=== PATIENT | male | born 1980 | race Two or more races ===

== ENCOUNTER 2024-10-02 09:29 | Inpatient (IN) | payer SELFPAY ==
[2024-10-02] VITALS (8 sets, daily range): BP systolic 150–168; BP diastolic 86–116; PULSE 76–115; TEMP 36.4–36.8; O2SAT 96–100; BMI 22.1; BMI 18.9
--- NOTE | 2024-10-02 09:55 | CT_ITS ---
The [address] [address] Patient Name: RENAE SANTANA MRN: [id number] date: 1980 Sex: M Assigned Patient Location: ER Current Patient Location: MS Accession/Order Number: [id number] Exam Date: 10/02/2024 10:06 Report Date: 10/02/2024 12:50 At the request of: ZACARIAS BANSAL Procedure: CT foot RT wo con EXAM: CT foot RT wo con HISTORY: frostbite, necrosis right foot COMPARISON: None. FINDINGS: No acute fracture or dislocation. Joint spaces are well-maintained. No cortical erosive changes. In particular, no acro-osteolysis to the distal phalanges. There is extensive soft tissue swelling to the right foot, particularly involving the digits and the forefoot. No focal fluid collection/abscess. No foci of air within the subcutaneous tissues. CT/CT foot RT wo con IMPRESSION: No acute fracture or dislocation. No cortical erosive changes. No evidence for acro-osteolysis to the distal phalanges. Extensive soft tissue swelling right foot, particularly involving the digits and forefoot. This is consistent with the provided history of a thermal injury. No abscess. No foci of air in the subcutaneous tissues. Electronically authenticated by: JOSE DYER Date: 10/02/2024 12:50
[2024-10-02 10:10] LABS: Basophils Percent Auto 0.2 % (0.2-2.0); Eosinophils Absolute Auto 0.4 10^3/uL (0.0-0.7); Eosinophils Percent Auto 3.2 % (0.9-7.0); Hematocrit 38.1 % (42.0-54.0); Hemoglobin 13.3 g/dL (14.0-18.0); Immature Granulocytes Abs Auto 0.07 10^3/uL (0.00-0.03); Immature Granulocytes Pct Auto 0.6 % (0.0-0.5); Lymphocytes Percent Auto 16.7 % (20.5-60.0); Mean Corpuscular HGB Conc 34.9 g/dL (29.9-35.2); Mean Corpuscular Hemoglobin 31.9 pg (25.9-34.0); Mean Corpuscular Volume 91.4 fL (80.0-94.0); Mean Platelet Volume 9.4 fL (9.5-13.5); Monocytes Percent Auto 8.3 % (1.7-12.0); Neutrophils Absolute Auto 8.5 10^3/uL (1.4-6.5); Platelet Count 431 10^3/uL (150-450); Red Blood Count 4.17 10^6/uL (4.70-6.10); Red Cell Distribution Width 12.9 % (11.0-15.0)
[2024-10-02] MEDS: PIPERACILLIN SODIUM/TAZOBACTAM 4.5 GM in 0.9 % SODIUM CHLORIDE 50 ML IV (10:13)
[2024-10-02 10:27] LABS: Alanine Aminotransferase 45 U/L (16-63); Albumin Globulin Ratio 0.6; Albumin Level 2.9 g/dL (3.4-5.0); Alkaline Phosphatase 83 U/L (46-116); Anion Gap 12.1; Aspartate Amino Transferase 20 U/L (15-37); BUN Creatinine Ratio 14.8; Bilirubin Total 0.2 mg/dL (0.2-1.0); Carbon Dioxide 29.5 mmol/L (21.0-32.0); Chloride 101 mmol/L (98-107); Estimated GFR (African America >60 (>=60 mL/min/1.73m^2); Estimated GFR (Non-African Ame >60 (>=60 mL/min/1.73m^2); Globulin 4.5 g/dL; Glucose 157 mg/dL (74-106); Potassium 3.6 mmol/L (3.5-5.1); Sodium 139 mmol/L (136-145); Total Protein 7.4 g/dL (6.4-8.2)
--- NOTE | 2024-10-02 10:51 | ED.GENADUL1 ---
HPI HPI - General Adult General Chief complaint: Extremity Problem, Nontraumatic Stated complaint: LOWER EXTREMITY PAIN Time Seen by Provider: 10/02/24 09:37 Source: patient Mode of arrival: walk-in History of Present Illness HPI narrative: The patient notes with frostbite and obvious infection of the right foot. The patient told me that he is homeless and living in his car for the last 3 months. He is from the [facility] but recently has been residing in [place]. We have had severe cold weather with temperatures dropping below freezing and even below 0 over the last week or so. He said that he does not have the money to run his car all night and keep it heated and therefore he has been trying to stay as warm as possible. He started develop changes in the foot at least a week ago. He has not sought care for this to date. It is not clear why he chose to leave [place], which has a larger hospital in that location, in order to drive to [place]. But he now presents with concern for obvious infection of the foot and possible and likely loss of toes in that right foot as well. He denies any prior medical history such as diabetes, high cholesterol, hypertension, coronary artery disease. He denies taking any medications on a prescribed basis. He denies any symptoms such as fever, chills, vomiting. He has lost some sensation in that foot. Related Data Allergies Allergy/AdvReac Type Severity Reaction Status Date / Time No Known Drug Allergies Allergy Verified 10/02/24 09:35 Opioid HPI Opioid Management Most Recent Opioid Data: Last Pain Scale 0 10/02/24 12:05 10/02/24 Last Pain Assessment 10/02/24 12:05 Last ORT Total Score 1 10/02/24 10:56 10/02/24 Last ORT Risk Category Low Risk 10/02/24 10:56 10/02/24 [facility] Medical History (Updated 10/02/24 @ 12:20 by Shaikh Mirlande MD) Gangrene of toe of right foot ?I96 - Gangrene, not elsewhere classified (ICD-10) HTN (hypertension) ?I10 - Essential (primary) hypertension (ICD-10) Social History (Updated 10/02/24 @ 12:10 by Mandy Khalil) Within the past year, how often did you have a drink containing alcohol: 2-3 times a week Within the past year, how many standard drinks containing alcohol did you have on a typical day: 10 or more Within the past year, how often did you have six or more drinks on one occasion: never Total score: 8 Score interpretation: A score of 4 or more indicates drinking is likely to affect patient's safety. 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 [employer] Known occupational exposures/hazards: No Highest level of school completed/degree received: high school graduate Do you want help with school or training: No Are you now , , , , never or living with a partner: In a typical week, how many times do you talk on the telephone with family, friends, or neighbors: never How often do you get together with friends or relatives: never How often do you attend taoist or synagogue services: never Do you belong to any clubs or organizations such as taoist groups unions, fraternal or athletic groups, or school groups: no Total score: 0 Score interpretation: A score of less than or equal to 1 indicates the most socially isolated. Little interest or pleasure in doing things: not at all Feeling down, depressed, or hopeless: not at all Feel stressed/tense/nervous/anxious/difficulty sleeping: not at all Due to disability, difficulty making decisions: No Do you think of yourself as: straight/heterosexual Gender Identity: male Exam Narrative Exam Narrative: Nurses notes and vital signs reviewed and patient is not hypoxic. afebrile General: Well-appearing and in no apparent distress. Skin: Warm, dry, no pallor noted. See the musculoskeletal section below for details regarding the patient's right foot Head: Normocephalic, atraumatic. Neck: Supple, non-tender. Eye: Pupils are equal, round and EOMI. No scleral icterus. Ears, Nose, Mouth, and Throat: Oral mucosa is moist Cardiovascular: Regular Rate and Rhythm without murmur, gallop or rub. Respiratory: No accessory muscle use or respiratory distress. Lungs are clear to auscultation, no wheezing, rales or rhonchi Musculoskeletal: Right foot = he has necrosis of all 5 toes of the right foot, they are purple and already experiencing skin sloughing in several areas. He additionally has skin sloughing on the distal portion of the plantar aspect of the foot. There is some drainage of serous fluid in the foot is very foul-smelling. I do not see any proximal streaking but due to the color of his skin is difficult to assess. He has almost no range of motion of the toes of the right foot and absolutely no sensation. The skin sloughing is starting to extend into the distal portion of the right foot on the plantar and dorsal surface. All remaining extremities and the proximal portion of the right lower extremity, including ankle, lower leg, knee and thigh are with normal ROM. No calf or popliteal tenderness, no lower leg edema/swelling Neurological: A&O x4. No cranial nerve dysfunction observed. No truncal ataxia. Moves all extremities. Sensation intact. Psychiatric: Cooperative and interactive. Normal mood and affect. Constitutional Vital Signs, click to edit/add: Last Vital Signs Temp 97.8 F 10/02/24 12:19 Pulse 76 10/02/24 12:19 Resp 16 10/02/24 12:19 BP 160/88 H 10/02/24 12:19 Pulse Ox 98 10/02/24 12:19 O2 Del Method Room Air 10/02/24 12:19 Course Vital Signs Vital signs: Vital Signs Temperature 98.3 F 10/02/24 09:32 Pulse Rate 115 H 10/02/24 09:32 Respiratory Rate 18 10/02/24 09:32 Blood Pressure 156/116 H 10/02/24 09:32 Pulse Oximetry 100 10/02/24 09:32 Oxygen Delivery Method Room Air 10/02/24 09:32 Temperature 97.8 F 10/02/24 12:19 Pulse Rate 76 10/02/24 12:19 Respiratory Rate 16 10/02/24 12:19 Blood Pressure 160/88 H 10/02/24 12:19 Pulse Oximetry 98 10/02/24 12:19 Oxygen Delivery Method Room Air 10/02/24 12:19 Medical Decision Making MDM Narrative Medical decision making narrative: Patient has obvious necrosis of the toes of the right foot and will need surgery to take care of this. Peripheral IV was established and blood drawn and sent for testing. I also ordered a wound swab to be obtained. CT scan of the right foot was also ordered as it will give much more information than a simple set of plain films. He was ordered to receive IV Zosyn. I placed a call to the on-call looseleaf binder coverer, Dr. Layton, and we discussed this patient's case. He said he would be willing to take this patient to the OR on Friday if Dr. Renteria, the email marketing specialist on-call, would be willing to admit this patient. I spoke with Dr. Nogueira and after discussing the patient's case, he agreed to admit the patient to his service. The patient will go to medical surgical floor for continued IV antibiotic therapy, further assessment of his general condition with plans for surgical services - hopefully on October 04. Lab Data Lab results reviewed: Yes I reviewed the patient's lab results Labs: Lab Results 10/02/24 Range/Units 09:53 WBC 12.0 H (4.0-11.0) 10^3/uL RBC 4.17 L (4.70-6.10) 10^6/uL Hgb 13.3 L (14.0-18.0) g/dL Hct 38.1 L (42.0-54.0) % MCV 91.4 (80.0-94.0) fL MCH 31.9 (25.9-34.0) pg MCHC 34.9 (29.9-35.2) g/dL RDW 12.9 (11.0-15.0) % Plt Count 431 (150-450) 10^3/uL MPV 9.4 L (9.5-13.5) fL Neut % (Auto) 71.0 (43.0-75.0) % Lymph % (Auto) 16.7 L (20.5-60.0) % [place] % (Auto) 8.3 (1.7-12.0) % Eos % (Auto) 3.2 (0.9-7.0) % Baso % (Auto) 0.2 (0.2-2.0) % Neut # (Auto) 8.5 H (1.4-6.5) 10^3/uL Lymph # (Auto) 2.0 (1.2-3.8) 10^3/uL [place] # (Auto) 1.0 H (0.3-0.8) 10^3/uL Eos # (Auto) 0.4 (0.0-0.7) 10^3/uL Baso # (Auto) 0.0 (0.0-0.1) 10^3/uL Abs Immat Gran (auto) 0.07 H (0.00-0.03) 10^3/uL Imm/Tot Granulo (auto) 0.6 H (0.0-0.5) % ESR 56 H (<=15) mm/hr Sodium 139 (136-145) mmol/L Potassium 3.6 (3.5-5.1) mmol/L Chloride 101 (98-107) mmol/L Carbon Dioxide 29.5 (21.0-32.0) mmol/L Anion Gap 12.1 BUN 16.0 (7.0-18.0) mg/dL Creatinine 1.08 (0.70-1.30) mg/dL Est GFR ( Amer) >60 (>=60 mL/min/1.73m^2) Est GFR (Non-Af Amer) >60 (>=60 mL/min/1.73m^2) BUN/Creatinine Ratio 14.8 Glucose 157 H (74-106) mg/dL Calcium 9.0 (8.5-10.1) mg/dL Total Bilirubin 0.2 (0.2-1.0) mg/dL AST 20 (15-37) U/L ALT 45 (16-63) U/L Alkaline Phosphatase 83 (46-116) U/L C-Reactive Protein 14.25 H (<=0.50) mg/dL Total Protein 7.4 (6.4-8.2) g/dL Albumin 2.9 L (3.4-5.0) g/dL Globulin 4.5 g/dL Albumin/Globulin Ratio 0.[address] foot: Radiologist's impression: ITS Impressions Foot CT 10/02/24 09:55 IMPRESSION: No acute fracture or dislocation. No cortical erosive changes. No evidence for acro-osteolysis to the distal phalanges. Extensive soft tissue swelling right foot, particularly involving the digits and forefoot. This is consistent with the provided history of a thermal injury. No abscess. No foci of air in the subcutaneous tissues. Electronically authenticated by: JOSE DYER Date: 10/02/2024 12:50 Discharge Plan Discharge Chief Complaint: Extremity Problem, Nontraumatic Clinical Impression: Frostbite with tissue necrosis of right toe(s), initial encounter Patient Disposition: Admitted As Inpatient Time of Disposition Decision: 10:00 Discharge Date/Time: 10/02/24 11:05
--- NOTE | 2024-10-02 12:13 | PM.HP ---
HPI H&P: HPI History of Present Illness Chief complaint: LOWER EXTREMITY PAIN Narrative: 44 y o male, currently homeless and living out of his car came to ED for right foot discoloration, pain and foul smelling discharge. He told me that his car's heat broke down and September 20 is when he first noticed that his toes in right foot had turned purple. He hoped that they will improve but progressively got worse and now he appears to have gangrenous changes involving all his toes in right foot. He has minimal pain. Case d/w Podiatry by ED who will take patient to OR on Friday. Patient has no known medical problems except for HTN. Smokes daily and drinks alcohol but no concern for alcohol dependence or abuse. Denies hx of Drug use. Opioid HPI Opioid Management Most Recent Pain and Opioid Data: Last Pain Scale 0 10/02/24 12:05 10/02/24 Last Pain Assessment 10/02/24 12:05 Last ORT Total Score 1 10/02/24 10:56 10/02/24 Last ORT Risk Category Low Risk 10/02/24 10:56 10/02/24 Review of Systems ROS Status of ROS 10 or more systems reviewed and unremarkable except as noted in history and below [facility] Medical History (Updated 10/02/24 @ 12:20 by Shaikh Mirlande MD) Gangrene of toe of right foot ?I96 - Gangrene, not elsewhere classified (ICD-10) HTN (hypertension) ?I10 - Essential (primary) hypertension (ICD-10) Social History (Updated 10/02/24 @ 12:10 by Mandy Khalil) Within the past year, how often did you have a drink containing alcohol: 2-3 times a week Within the past year, how many standard drinks containing alcohol did you have on a typical day: 10 or more Within the past year, how often did you have six or more drinks on one occasion: never Total score: 8 Score interpretation: A score of 4 or more indicates drinking is likely to affect patient's safety. 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 [employer] Known occupational exposures/hazards: No Highest level of school completed/degree received: high school graduate Do you want help with school or training: No Are you now , , , , never or living with a partner: In a typical week, how many times do you talk on the telephone with family, friends, or neighbors: never How often do you get together with friends or relatives: never How often do you attend pentecostal or scientologist services: never Do you belong to any clubs or organizations such as pentecostal groups unions, fraternal or athletic groups, or school groups: no Total score: 0 Score interpretation: A score of less than or equal to 1 indicates the most socially isolated. Little interest or pleasure in doing things: not at all Feeling down, depressed, or hopeless: not at all Feel stressed/tense/nervous/anxious/difficulty sleeping: not at all Due to disability, difficulty making decisions: No Do you think of yourself as: straight/heterosexual Gender Identity: male Meds Home Medications and Allergies Allergies Allergy/AdvReac Type Severity Reaction Status Date / Time No Known Drug Allergies Allergy Verified 10/02/24 09:35 Exam Constitutional Vital Signs, click to edit/add: Last Vital Signs Temp 97.5 F L 10/02/24 10:56 Pulse 78 10/02/24 10:56 Resp 16 10/02/24 10:56 BP 165/93 H 10/02/24 10:56 Pulse Ox 98 10/02/24 10:56 O2 Del Method Room Air 10/02/24 10:56 Documenting provider has reviewed patient's vital signs: yes Common normals: no apparent distress and oriented x3 General appearance: cooperative HENND Common normals: normocephalic and head/scalp atraumatic Head and scalp: normocephalic and atraumatic Eye Common normals: conjunctivae normal and no scleral icterus Conjunctiva: conjunctiva(e) normal Respiratory Common normals: normal respiratory effort and clear to auscultation bilaterally Effort & inspection: able to speak in complete sentences Auscultation: clear to auscultation bilaterally Cardio Common normals: regular rate, S1 normal heart sound and S2 normal heart sound Rate: regular rate Heart sounds: S1 normal and S2 normal GI Common normals: Normal to inspection, nondistended, normoactive bowel sounds present, soft to palpation, non-tender and no hepatosplenomegaly Palpation: soft and no hepatosplenomegaly Extremity Other: Gangrene/necrosis of all toes of right foot. Plantar aspect of foot in the front half is macerated and stage 2 ulcer. Foul smell from foot wound. Neuro Common normals: oriented x3, moves all extremities and no focal motor deficits Psych Common normals: mental status grossly normal, denies hallucinations, denies homicidal ideation and denies suicidal ideation Results Labs Labs: Short CBC 10/02/24 Range/Units 09:53 WBC 12.0 H (4.0-11.0) 10^3/uL Hgb 13.3 L (14.0-18.0) g/dL Hct 38.1 L (42.0-54.0) % Plt Count 431 (150-450) 10^3/uL BMP 10/02/24 09:53 Sodium 139 Potassium 3.6 Chloride 101 Carbon Dioxide 29.5 BUN 16.0 Creatinine 1.08 Glucose 157 H Calcium 9.0 Liver Function 10/02/24 Range/Units 09:53 Total Bilirubin 0.2 (0.2-1.0) mg/dL AST 20 (15-37) U/L ALT 45 (16-63) U/L Alkaline Phosphatase 83 (46-116) U/L Albumin 2.9 L (3.4-5.0) g/dL Assessment and Plan Assessment and Plan (1) Gangrene of toe of right foot: (2) Frostbite with tissue necrosis of foot: Qualifiers: Encounter type: subsequent encounter Laterality: right Qualified Code(s): T34.821D - Frostbite with tissue necrosis of right foot, subsequent encounter (3) HTN (hypertension): Qualifiers: Hypertension type: primary hypertension Qualified Code(s): I10 - Essential (primary) hypertension Plan CT scan pending. Order ESR, CRP. Screen for T2 DM. Wound consulted for Right foot wound with gangrene and necrosis. Consulted Podiatry. Started on empirical IV abx - Vancomycin/zosyn. child protective services specialist consulted for homelessness.
[2024-10-02 12:26] LABS: C Reactive Protein 14.25 mg/dL (<=0.50)
[2024-10-02 12:27] LABS: Erythrocyte Sedimentation Rate 56 mm/hr (<=15)
[2024-10-02] MEDS: VANCOMYCIN HCL 1,000 MG in 0.9 % SODIUM CHLORIDE 250 ML 250 MG IV (13:49)
[2024-10-02 14:43] LABS: Amphetamine Screen Urine NEGATIVE (NEGATIVE); Barbiturates Screen Urine NEGATIVE (NEGATIVE); Benzodiazepines Screen Urine NEGATIVE (NEGATIVE); Buprenorphine Screen Urine NEGATIVE (NEGATIVE); Cannabinoid Screen Urine NEGATIVE (NEGATIVE); Cocaine Screen Urine NEGATIVE (NEGATIVE); Methadone Screen Urine NEGATIVE (NEGATIVE); Methamphetamines Screen Urine NEGATIVE (NEGATIVE); Opiate Screen Urine NEGATIVE (NEGATIVE); Oxycodone Screen Urine NEGATIVE (NEGATIVE); Phencyclidine Screen Urine NEGATIVE (NEGATIVE); Tricyclic Antidepressant Urine NEGATIVE (NEGATIVE)
[2024-10-02] MEDS: ENOXAPARIN SODIUM 40 MG/0.4 ML SYRINGE SUBQ (17:58)
[2024-10-02] MEDS: PIPERACILLIN SODIUM/TAZOBACTAM 3.375 GM in 0.9 % SODIUM CHLORIDE 50 ML IV (20:36)
[2024-10-02] MEDS: OXYCODONE HCL 5 MG TABLET PO (23:15)
[2024-10-03] MEDS: VANCOMYCIN HCL 1,000 MG in 0.9 % SODIUM CHLORIDE 250 ML 250 MG IV ×2 (01:01→15:39)
[2024-10-03] MEDS: PIPERACILLIN SODIUM/TAZOBACTAM 3.375 GM in 0.9 % SODIUM CHLORIDE 50 ML IV ×3 (04:30→21:23)
[2024-10-03 04:33] VITALS: BP 168/96; PULSE 79; TEMP 36.8; O2SAT 95
[2024-10-03 06:21] LABS: Basophils Absolute Auto 0.1 10^3/uL (0.0-0.1); Basophils Percent Auto 0.4 % (0.2-2.0); Eosinophils Absolute Auto 0.4 10^3/uL (0.0-0.7); Eosinophils Percent Auto 3.3 % (0.9-7.0); Hematocrit 36.5 % (42.0-54.0); Hemoglobin 12.3 g/dL (14.0-18.0); Immature Granulocytes Abs Auto 0.05 10^3/uL (0.00-0.03); Immature Granulocytes Pct Auto 0.4 % (0.0-0.5); Lymphocytes Absolute Auto 1.8 10^3/uL (1.2-3.8); Lymphocytes Percent Auto 14.5 % (20.5-60.0); Mean Corpuscular HGB Conc 33.7 g/dL (29.9-35.2); Mean Corpuscular Hemoglobin 30.7 pg (25.9-34.0); Mean Platelet Volume 9.7 fL (9.5-13.5); Monocytes Absolute Auto 1.1 10^3/uL (0.3-0.8); Neutrophils Absolute Auto 9.2 10^3/uL (1.4-6.5); Neutrophils Percent Auto 72.4 % (43.0-75.0); Platelet Count 398 10^3/uL (150-450); Red Blood Count 4.01 10^6/uL (4.70-6.10); Red Cell Distribution Width 12.7 % (11.0-15.0); White Blood Count 12.7 10^3/uL (4.0-11.0)
[2024-10-03 06:27] LABS: Estimated Average Glucose 103 mg/dL; Glycohemoglobin A1C 5.2 % (4.5-6.2)
[2024-10-03 06:45] LABS: Alanine Aminotransferase 32 U/L (16-63); Albumin Globulin Ratio 0.6; Albumin Level 2.4 g/dL (3.4-5.0); Alkaline Phosphatase 63 U/L (46-116); Anion Gap 10.2; Aspartate Amino Transferase 16 U/L (15-37); BUN Creatinine Ratio 12.2; Bilirubin Total 0.2 mg/dL (0.2-1.0); Calcium 8.8 mg/dL (8.5-10.1); Carbon Dioxide 26.7 mmol/L (21.0-32.0); Chloride 105 mmol/L (98-107); Estimated GFR (African America >60 (>=60 mL/min/1.73m^2); Estimated GFR (Non-African Ame >60 (>=60 mL/min/1.73m^2); Glucose 95 mg/dL (74-106); Potassium 3.9 mmol/L (3.5-5.1); Sodium 138 mmol/L (136-145); Total Protein 6.4 g/dL (6.4-8.2)
[2024-10-03 07:34] VITALS: BP 169/91; PULSE 83; TEMP 36.7; O2SAT 96
[2024-10-03] MEDS: AMLODIPINE BESYLATE 5 MG TABLET 10 MG PO (08:52)
[2024-10-03 11:08] VITALS: O2SAT 99
--- NOTE | 2024-10-03 11:25 | P.CN_ITS ---
Consult Note: [facility] Data of Consult Consult date: 10/03/24 Requesting Physician: Shaikh Mirlande MD Primary Care Provider: Non-Staff Physician, Consult Narrative Reason for consult: Right foot infection/gangrene Narrative: Patient is a pleasant 44-year-old male who is currently homeless who presented to the emergency department yesterday due to discoloration, wound to his right forefoot including toes. Patient noticed purplish discoloration within 2 weeks ago and progressively the discoloration which was initially limited to the tips of his toes worsened and then became black. Patient relates that during the severely cold temperatures that he and his car was not working properly which led to this current issue. He has never had any significant issues with his feet in the past and denies symptoms of claudication and rest pain. In the emergency department patient had leukocytosis and significant elevation in inflammatory markers. He was admitted for further evaluation and treatment. Patient relates that he feels systemically well but does have some discomfort to his forefoot when attempting to bear weight. He denies nausea, fever, chills, chest pain, shortness of breath, calf pain. cc:: CC: Shaikh Mirlande MD Review of Systems ROS Status of ROS 10 or more systems reviewed and unremark able except as noted in history and below [facility] Medical History (Updated 10/02/24 @ 12:20 by Shaikh Mirlande MD) Gangrene of toe of right foot ?I96 - Gangrene, not elsewhere classified (ICD-10) HTN (hypertension) ?I10 - Essential (primary) hypertension (ICD-10) Social History (Updated 10/02/24 @ 12:10 by Mandy Khalil) Within the past year, how often did you have a drink containing alcohol: 2-3 times a week Within the past year, how many standard drinks containing alcohol did you have on a typical day: 10 or more Within the past year, how often did you have six or more drinks on one occasion: never Total score: 8 Score interpretation: A score of 4 or more indicates drinking is likely to affect patient's safety. 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 [employer] Known occupational exposures/hazards: No Highest level of school completed/degree received: high school graduate Do you want help with school or training: No Are you now , , , , never or living with a partner: In a typical week, how many times do you talk on the telephone with family, friends, or neighbors: never How often do you get together with friends or relatives: never How often do you attend hinduism or holiness services: never Do you belong to any clubs or organizations such as hinduism groups unions, [employer] or athletic groups, or school groups: no Total score: 0 Score interpretation: A score of less than or equal to 1 indicates the most socially isolated. Little interest or pleasure in doing things: not at all Feeling down, depressed, or hopeless: not at all Feel stressed/tense/nervous/anxious/difficulty sleeping: not at all Due to disability, difficulty making decisions: No Do you think of yourself as: straight/heterosexual Gender Identity: male Meds Home Medications and Allergies Allergies Allergy/AdvReac Type Severity Reaction Status Date / Time No Known Drug Allergies Allergy Verified 10/02/24 09:35 Exam Narrative Exam Narrative: Skin: Right toes are black with a macerated wound noted on the plantar forefoot. Mild global swelling of the foot but no ascending erythema. Significant malodor. Skin is sloughing and macerated to the forefoot. No fluctuance or purulence noted Neuro: Light touch sensation is absent to the toes and altered to the midfoot. No pain out of proportion Vascular: Pedal pulses are palpable. Absent digital hair growth bilaterally Musculoskeletal: Strength and range of motion were deferred. Patient is able to fire major muscle groups in dorsiflexion, plantarflexion, eversion and inversion. No calf pain on squeeze Constitutional Vital Signs, click to edit/add: Last Vital Signs Temp 98.0 F 10/03/24 07:34 Pulse 83 10/03/24 07:34 Resp 16 10/03/24 07:34 BP 169/91 H 10/03/24 07:34 Pulse Ox 99 10/03/24 11:08 O2 Del Method Room Air 10/03/24 11:08 Results Labs Labs: Short CBC 10/03/24 Range/Units 05:35 WBC 12.7 H (4.0-11.0) 10^3/uL Hgb 12.3 L (14.0-18.0) g/dL Hct 36.5 L (42.0-54.0) % Plt Count 398 (150-450) 10^3/uL BMP 10/03/24 05:35 Sodium 138 Potassium 3.9 Chloride 105 Carbon Dioxide 26.7 BUN 11.0 Creatinine 0.90 Glucose 95 Calcium 8.8 Liver Function 10/03/24 Range/Units 05:35 Total Bilirubin 0.2 (0.2-1.0) mg/dL AST 16 (15-37) U/L ALT 32 (16-63) U/L Alkaline Phosphatase 63 (46-116) U/L Albumin 2.4 L (3.4-5.0) g/dL Assessment and Plan Assessment and Plan (1) Gangrene of toe of right foot: (2) Frostbite with tissue necrosis of foot: Qualifiers: Encounter type: subsequent encounter Laterality: right Qualified Code(s): T34.821D - Frostbite with tissue necrosis of right foot, subsequent encounter (3) HTN (hypertension): Qualifiers: Hypertension type: primary hypertension Qualified Code(s): I10 - Essential (primary) hypertension Plan Patient seen and evaluated. Patient is occasion provided and all questions answered to his satisfaction. Patient's findings are consistent with wet gangrene and he is hemodynamically stable. Therefore I recommended transmetatarsal amputation and after discussing all the patient's options he agrees to move forward with surgical intervention tomorrow He will be nonweightbearing for 1 to 3 weeks and likely will require 6 weeks or more off of work Continue broad-spectrum antibiotics N.p.o. after midnight Will follow
--- NOTE | 2024-10-03 11:33 | P.IMPN_ITS ---
Progress Note: A&P Assessment and Plan (1) Gangrene of toe of right foot: Assessment and Plan: Elevated ESR/CRP. No abscess noted on CT. Gangrene/tissue necrosis due to prolonged exposure to freezing temperature. NPO after MN for podiatry eval and possible TMA. On empirical abx. (2) Frostbite with tissue necrosis of foot: Assessment and Plan: Gangrene/tissue necrosis due to prolonged exposure to freezing temperature. NPO after MN for podiatry eval and possible TMA. Qualifiers: Encounter type: subsequent encounter Laterality: right Qualified Code(s): T34.821D - Frostbite with tissue necrosis of right foot, subsequent encounter (3) HTN (hypertension): Assessment and Plan: Started on amlodipine. Qualifiers: Hypertension type: primary hypertension Qualified Code(s): I10 - Essential (primary) hypertension Internal Medicine - PN: Subj Subjective Interval history: Seen and examined. No overnight events. Exam Constitutional Vital Signs, click to edit/add: Last Vital Signs Temp 98.0 F 10/03/24 07:34 Pulse 83 10/03/24 07:34 Resp 16 10/03/24 07:34 BP 169/91 H 10/03/24 07:34 Pulse Ox 99 10/03/24 11:08 O2 Del Method Room Air 10/03/24 11:08 Documenting provider has reviewed patient's vital signs: yes Common normals: no apparent distress and oriented x3 General appearance: cooperative Respiratory Common normals: normal respiratory effort and clear to auscultation bilaterally Effort & inspection: able to speak in complete sentences Auscultation: clear to auscultation bilaterally Cardio Common normals: regular rate, S1 normal heart sound and S2 normal heart sound Rate: regular rate Heart sounds: S1 normal and S2 normal Extremity Other: Gangrene/necrosis of all toes of right foot. Plantar aspect of foot in the front half is macerated and stage 2 ulcer. Foul smell from foot wound. Neuro Common normals: oriented x3, moves all extremities and no focal motor deficits Psych Common normals: mental status grossly normal, denies hallucinations, denies homicidal ideation and denies suicidal ideation Internal Medicine - PN: Obj Da Labs Labs: Laboratory Results - last 24 hr 10/02/24 10/02/24 10/03/24 09:53 13:35 05:35 WBC 12.7 H RBC 4.01 L Hgb 12.3 L Hct 36.5 L MCV 91.0 MCH 30.7 MCHC 33.7 RDW 12.7 Plt Count 398 MPV 9.7 Neut % (Auto) 72.4 Lymph % (Auto) 14.5 L [place] % (Auto) 9.0 Eos % (Auto) 3.3 Baso % (Auto) 0.4 Neut # (Auto) 9.2 H Lymph # (Auto) 1.8 [place] # (Auto) 1.1 H Eos # (Auto) 0.4 Baso # (Auto) 0.1 Abs Immat Gran (auto) 0.05 H Imm/Tot Granulo (auto) 0.4 ESR 56 H Sodium 138 Potassium 3.9 Chloride 105 Carbon Dioxide 26.7 Anion Gap 10.2 BUN 11.0 Creatinine 0.90 Est GFR ( Amer) >60 Est GFR (Non-Af Amer) >60 BUN/Creatinine Ratio 12.2 Glucose 95 Estimat Average Glucose 103 Hemoglobin A1c 5.2 Calcium 8.8 Total Bilirubin 0.2 AST 16 ALT 32 Alkaline Phosphatase 63 C-Reactive Protein 14.25 H Total Protein 6.4 Albumin 2.4 L Globulin 4.0 Albumin/Globulin Ratio 0.6 Urine Opiates Screen Negative Ur Buprenorphine Scrn Negative Ur Oxycodone Screen Negative Urine Methadone Screen Negative Ur Barbiturates Screen Negative U Tricyclic Antidepress Negative Ur Phencyclidine Scrn Negative Ur Amphetamines Screen Negative U Methamphetamines Scrn Negative U Benzodiazepines Scrn Negative Urine Cocaine Screen Negative U Cannabinoids Screen Negative
[2024-10-03] MEDS: ENOXAPARIN SODIUM 40 MG/0.4 ML SYRINGE SUBQ (16:56)
[2024-10-03 16:57] VITALS: BP 163/92; PULSE 86; TEMP 36.8; O2SAT 99
[2024-10-03] MEDS: ACETAMINOPHEN 325 MG TABLET 650 MG PO (17:45)
[2024-10-03 19:47] VITALS: BP 164/96; PULSE 74; TEMP 36.8; O2SAT 98
[2024-10-03 19:52] VITALS: O2SAT 100
[2024-10-04] VITALS (15 sets, daily range): BP systolic 119–150; BP diastolic 76–98; PULSE 62–85; TEMP 36.5–36.8; O2SAT 92–100
[2024-10-04] MEDS: VANCOMYCIN HCL 1,000 MG in 0.9 % SODIUM CHLORIDE 250 ML 250 MG IV ×2 (00:59→15:15)
[2024-10-04] MEDS: PIPERACILLIN SODIUM/TAZOBACTAM 3.375 GM in 0.9 % SODIUM CHLORIDE 50 ML IV ×3 (04:44→23:49)
[2024-10-04 05:14] LABS: Basophils Percent Auto 0.3 % (0.2-2.0); Eosinophils Absolute Auto 0.4 10^3/uL (0.0-0.7); Eosinophils Percent Auto 3.1 % (0.9-7.0); Hematocrit 36.3 % (42.0-54.0); Hemoglobin 12.5 g/dL (14.0-18.0); Immature Granulocytes Abs Auto 0.06 10^3/uL (0.00-0.03); Immature Granulocytes Pct Auto 0.5 % (0.0-0.5); Lymphocytes Absolute Auto 2.2 10^3/uL (1.2-3.8); Mean Corpuscular HGB Conc 34.4 g/dL (29.9-35.2); Mean Corpuscular Hemoglobin 31.3 pg (25.9-34.0); Mean Platelet Volume 9.5 fL (9.5-13.5); Monocytes Absolute Auto 1.1 10^3/uL (0.3-0.8); Monocytes Percent Auto 8.2 % (1.7-12.0); Neutrophils Absolute Auto 9.1 10^3/uL (1.4-6.5); Neutrophils Percent Auto 70.9 % (43.0-75.0); Platelet Count 418 10^3/uL (150-450); Red Blood Count 3.99 10^6/uL (4.70-6.10); Red Cell Distribution Width 12.4 % (11.0-15.0); White Blood Count 12.9 10^3/uL (4.0-11.0)
[2024-10-04 05:32] LABS: Alanine Aminotransferase 35 U/L (16-63); Albumin Globulin Ratio 0.6; Albumin Level 2.7 g/dL (3.4-5.0); Alkaline Phosphatase 71 U/L (46-116); Anion Gap 12.5; Aspartate Amino Transferase 17 U/L (15-37); BUN Creatinine Ratio 13.8; Bilirubin Total 0.2 mg/dL (0.2-1.0); Carbon Dioxide 26.6 mmol/L (21.0-32.0); Chloride 102 mmol/L (98-107); Estimated GFR (African America >60 (>=60 mL/min/1.73m^2); Estimated GFR (Non-African Ame >60 (>=60 mL/min/1.73m^2); Globulin 4.2 g/dL; Glucose 95 mg/dL (74-106); Potassium 4.1 mmol/L (3.5-5.1); Sodium 137 mmol/L (136-145); Total Protein 6.9 g/dL (6.4-8.2)
--- NOTE | 2024-10-04 09:22 | CM.NOTE ---
Rounds made with Dr. Khalil, pt will go to OR today. Pt is homeless and living out of his car, SW updated and will see pt.
--- NOTE | 2024-10-04 09:51 | ECG_ITS ---
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
--- NOTE | 2024-10-04 10:30 | P.PN_ITS ---
Progress Note: Subjective Subjective Interval history: No complaints this morning, anticipating surgery later today Exam Constitutional Vital Signs, click to edit/add: Last Vital Signs Temp 98.1 F 10/04/24 07:51 Pulse 62 10/04/24 07:51 Resp 14 10/04/24 07:51 BP 150/91 H 10/04/24 07:51 Pulse Ox 98 10/04/24 07:51 O2 Del Method Room Air 10/04/24 07:51 Documenting provider has reviewed patient's vital signs: yes Common normals: no apparent distress Respiratory Common normals: normal respiratory effort, no retractions and clear to auscultation bilaterally Cardio Common normals: regular rate and regular rhythm Extremity Common normals: abnormal to inspection (Dressing in place) Progress Note: Objective Labs Labs: Short CBC 10/04/24 Range/Units 04:58 WBC 12.9 H (4.0-11.0) 10^3/uL Hgb 12.5 L (14.0-18.0) g/dL Hct 36.3 L (42.0-54.0) % Plt Count 418 (150-450) 10^3/uL BMP 10/04/24 04:58 Sodium 137 Potassium 4.1 Chloride 102 Carbon Dioxide 26.6 BUN 12.0 Creatinine 0.87 Glucose 95 Calcium 9.0 Liver Function 10/04/24 Range/Units 04:58 Total Bilirubin 0.2 (0.2-1.0) mg/dL AST 17 (15-37) U/L ALT 35 (16-63) U/L Alkaline Phosphatase 71 (46-116) U/L Albumin 2.7 L (3.4-5.0) g/dL Progress Note: A&P Assessment and Plan (1) Gangrene of toe of right foot: (2) Frostbite with tissue necrosis of foot: Qualifiers: Encounter type: subsequent encounter Laterality: right Qualified Code(s): T34.821D - Frostbite with tissue necrosis of right foot, subsequent encounter (3) HTN (hypertension): Qualifiers: Hypertension type: primary hypertension Qualified Code(s): I10 - Essential (primary) hypertension Plan Admission findings of gangrene of toe of right foot Frostbite with tissue necrosis of foot:-Continue with current antibiotics, surgery later today, white blood cell count significant elevated, check on culture results HTN (hypertension): Blood pressure up slightly today, continue to monitor closely and adjust medications as necessary Patient seen to mt on admission-improved Moderate protein calorie malnutrition-add diet supplementation to aid in wound healing Admission status: Medically necessary treatment will span 2 midnights secondary to the need for IV antibiotics and surgical intervention to take place today, inpatient status
[2024-10-04 12:01] LABS: Glucometer 105 mg/dL (74-106)
--- NOTE | 2024-10-04 12:45 | P.ORON_ITS ---
Brief Operative Note Date of procedure: 10/05/24 Pre-op diagnosis general: Frostbite with gangrene, right foot Post-op diagnosis: same as pre-op Procedure: Procedure performed: Right transmetatarsal amputation with application of short leg splint Indications for procedure: Please see consultation note for details but in short patient sustained frostbite during recent cold spell due to being homeless and living in his car. He presented to our emergency department on 10/02/2024 with signs and symptoms of wet gangrene. Patient was educated on alternative treatments as well as possible risks and benefits of the above procedure and is agreed to undergo amputation. Intraoperative findings: Nabil necrosis of all 5 digits of the right foot which extended to the level of the metatarsal phalangeal joints dorsally and proximal to the metatarsal heads plantarly. Due to more plantar necrotic tissue compared to dorsal dorsal skin and soft tissue was used to cover the metatarsal shafts which allowed maximal amount of forefoot length to be preserved. No purulence or erythema. Bone quality was within normal limits. Bleeding at the incision edges into the stump was within normal limits once the tourniquet was deflated. Procedure in detail: Patient was identified in preoperative holding by myself which time correct side and site were marked and consent was obtained. Regional anesthesia was performed by the anesthesia team. Patient is receiving vancomy ursula and Zosyn on the floor and no additional preoperative antibiotics were given. Patient was brought back to the operating theater placed on table supine position with a thigh tourniquet. General anesthesia was administered and the right lower extremity was prepped and draped in usual sterile fashion. Formal timeout was performed. The right limb was elevated above the level of the heart for several minutes and the tourniquet was inflated. [place] incision was placed over the distal forefoot taking care to excise all questionable and compromised tissue. To preserve maximal amount of metatarsal length more soft tissue resection was performed plantarly given more necrotic tissue was plantar compared to the dorsal. Sharp and blunt dissection was taken down to bone and a full-thickness flap was raised dorsally. Then a sagittal saw was used to perform beveled osteotomies of all 5 metatarsals. Then dissection was taken along the plantar aspects of the metatarsals allowing the forefoot to be amputated which was passed the back table to be sent as specimen. Surgical site was irrigated with 3 L of normal saline on pulse lavage. The tourniquet was deflated noting a prompt hyperemic response and a bleeding response that was within normal limits. There was no sign of infection remaining. The stump was then closed with skin suture. Then a dry sterile dressing and a multilayer modified Resendez posterior splint was applied. Patient tolerated the procedure and anesthesia well was transported to the recovery room with vital signs stable. Postoperative plan: Once cleared by anesthesia transfer back to medical surgical unit for continued medical monitoring Nonweightbearing right foot Keep splint clean dry and intact; reinforce as necessary Upon discharge patient may be placed on 2 weeks of oral antibiotics Follow-up in the wound center within 1 week from discharge Anesthesia: regional and General-LMA Surgeon: Jhony Layton Senior Compliance Officer: Shreya Silva Estimated blood loss (mL): 25 Tourniquet time (min): 16 Pathology: other (forefoot amputation) Condition: stable Disposition: PACU
--- NOTE | 2024-10-04 12:48 | PC.NURSE ---
Patient was consented for nerve block by DEE Smith. Patient was placed on monitors and O2 per protocol. Time out was completed at 1225. Patient was medicated by DEE. Positioned for first block site. Bedside ultrasound used for the procedure to locate area to block. Popliteal was blocked with time of 9653-1851. Femoral block was completed with the time of 7643-4258. Patient tolerated procedure well. Patient remains on monitors and O2 until taken to OR.
--- NOTE | 2024-10-04 12:58 | XR_ITS ---
The [address] [address] Patient Name: RENAE SANTANA MRN: [id number] date: 1980 Sex: M Assigned Patient Location: MS Current Patient Location: MS Accession/Order Number: [id number] Exam Date: 10/04/2024 14:45 Report Date: 10/05/2024 05:44 At the request of: KITTY LECHUGA Procedure: XR foot RT min 3V PROCEDURE: XR foot RT min 3V HISTORY: gangrene right forefoot COMPARISON: CT foot right 10/02/2024 FINDINGS: BONES:Amputation of the forefoot at level of proximal-mid metatarsals. SOFT TISSUES:Soft tissue swelling surrounding the foot. Images were obtained through cast material which limits evaluation. EFFUSION:None visible. OTHER: Negative. XR/XR foot RT min 3V IMPRESSION: 1. Postop forefoot amputation. Electronically authenticated by: KIRK DUKE Date: 10/05/2024 05:44
--- NOTE | 2024-10-04 13:30 | SWNOTE1 ---
SW has not been able to assess today, pt in OR. SW to complete assessment tomorrow.
[2024-10-04 14:18] LABS: Glucometer 111 mg/dL (74-106)
[2024-10-04] MEDS: 0.9 % SODIUM CHLORIDE 250 ML 10 ML IV (15:15)
[2024-10-04] MEDS: ENOXAPARIN SODIUM 40 MG/0.4 ML SYRINGE SUBQ (16:55)
[2024-10-04] MEDS: ENSURE HP 237 ML LIQUID PO (20:30)
[2024-10-04] MEDS: JUVEN PACKET 1 PACKET PO (20:30)
[2024-10-04] MEDS: OXYCODONE HCL 5 MG TABLET PO (23:29)
[2024-10-05] MEDS: VANCOMYCIN HCL 1,000 MG in 0.9 % SODIUM CHLORIDE 250 ML 250 MG IV (01:52)
[2024-10-05 05:47] VITALS: BP 162/99; PULSE 71; TEMP 36.7; O2SAT 97
[2024-10-05] MEDS: OXYCODONE HCL 5 MG TABLET PO ×2 (05:47→12:46)
[2024-10-05 06:20] LABS: Basophils Percent Auto 0.2 % (0.2-2.0); Eosinophils Percent Auto 0.1 % (0.9-7.0); Hematocrit 37.6 % (42.0-54.0); Hemoglobin 12.8 g/dL (14.0-18.0); Immature Granulocytes Abs Auto 0.13 10^3/uL (0.00-0.03); Immature Granulocytes Pct Auto 0.7 % (0.0-0.5); Lymphocytes Absolute Auto 1.6 10^3/uL (1.2-3.8); Lymphocytes Percent Auto 8.1 % (20.5-60.0); Mean Corpuscular Hemoglobin 30.7 pg (25.9-34.0); Mean Corpuscular Volume 90.2 fL (80.0-94.0); Mean Platelet Volume 9.7 fL (9.5-13.5); Monocytes Percent Auto 5.3 % (1.7-12.0); Neutrophils Absolute Auto 16.9 10^3/uL (1.4-6.5); Neutrophils Percent Auto 85.6 % (43.0-75.0); Platelet Count 464 10^3/uL (150-450); Red Blood Count 4.17 10^6/uL (4.70-6.10); Red Cell Distribution Width 12.1 % (11.0-15.0); White Blood Count 19.8 10^3/uL (4.0-11.0)
[2024-10-05 06:37] LABS: C Reactive Protein 4.36 mg/dL (<=0.50)
[2024-10-05 06:42] LABS: Alanine Aminotransferase 31 U/L (16-63); Albumin Globulin Ratio 0.6; Albumin Level 2.7 g/dL (3.4-5.0); Alkaline Phosphatase 67 U/L (46-116); Anion Gap 10.6; Aspartate Amino Transferase 21 U/L (15-37); BUN Creatinine Ratio 18.2; Bilirubin Total 0.3 mg/dL (0.2-1.0); Calcium 9.2 mg/dL (8.5-10.1); Carbon Dioxide 28.7 mmol/L (21.0-32.0); Chloride 102 mmol/L (98-107); Estimated GFR (African America >60 (>=60 mL/min/1.73m^2); Estimated GFR (Non-African Ame >60 (>=60 mL/min/1.73m^2); Globulin 4.2 g/dL; Glucose 108 mg/dL (74-106); Potassium 4.3 mmol/L (3.5-5.1); Sodium 137 mmol/L (136-145); Total Protein 6.9 g/dL (6.4-8.2)
[2024-10-05] MEDS: PIPERACILLIN SODIUM/TAZOBACTAM 3.375 GM in 0.9 % SODIUM CHLORIDE 50 ML IV (08:34)
[2024-10-05] MEDS: ENSURE HP 237 ML LIQUID PO (08:35)
[2024-10-05] MEDS: JUVEN PACKET 1 PACKET PO (08:35)
[2024-10-05] MEDS: AMLODIPINE BESYLATE 5 MG TABLET 10 MG PO (08:35)
[2024-10-05] MEDS: ACETAMINOPHEN 325 MG TABLET 650 MG PO (08:35)
--- NOTE | 2024-10-05 09:30 | P.DS_ITS ---
DS: Providers Provider Date of admission: 10/02/24 12:11 Primary care physician: Non-Staff Physician, Consults: 10/02/24 Consult to Credit And Collections Representative Routine Reason for consult:: Housing/Nursing Home 10/02/24 10:56 Consult to Podiatry Routine Consulting Provider: Jhony Layton Reason for consultation: right foot necrosis/frostbite Has provider been notified: Yes 10/02/24 12:10 Consult to Podiatry Routine Consulting Provider: Jhony Layton Reason for consultation: Right foot gangrene 10/04/24 Physical Therapy Eval and Treat Routine Reason for consultation: NWB Right foot Has provider been notified: Yes DS: Diagnosis Discharge Diagnosis (1) Gangrene of toe of right foot: (2) Frostbite with tissue necrosis of foot: Qualifiers: Encounter type: subsequent encounter Laterality: right Qualified Code(s): T34.821D - Frostbite with tissue necrosis of right foot, subsequent encounter (3) HTN (hypertension): Qualifiers: Hypertension type: primary hypertension Qualified Code(s): I10 - Essential (primary) hypertension Plan Admission findings of gangrene of toe of right foot Frostbite with tissue necrosis of foot:-Continue with current antibiotics, surgery later today, white blood cell count significant elevated, check on culture results HTN (hypertension): Blood pressure up slightly today, continue to monitor closely and adjust medications as necessary Patient seen to me on admission-improved Moderate protein calorie malnutrition-add diet supplementation to aid in wound healing Admission status: Medically necessary treatment will span 2 midnights secondary to the need for IV antibiotics and surgical intervention to take place today, inpatient status ? DS: Summary Hospital Course Hospital Course: Patient was admitted through the emergency room with cellulitis of his foot, secondary to frostbite but resulting in gangrene. He went for surgical intervention yesterday, had that completed without difficulty, see operative notes. White blood cell count is somewhat elevated today blood pressure also somewhat elevated today, patient feels fine now, pain well-controlled at this point he can be discharged to home in improving condition. Medications see list. Follow-up with the PCP within the next week. And wound with podiatry per protocol Status at Discharge Overall status at discharge: patient is not back to baseline Time Spent with Patient Time attestation: Total time spent providing and/or coordinating discharge services: Time spent: greater than 30 minutes Exam Constitutional Vital Signs, click to edit/add: Last Vital Signs Temp 98.1 F 10/05/24 05:47 Pulse 71 10/05/24 05:47 Resp 18 10/05/24 05:47 BP 162/99 H 10/05/24 05:47 Pulse Ox 97 10/05/24 05:47 O2 Del Method Room Air 10/05/24 05:47 Documenting provider has reviewed patient's vital signs: yes Common normals: no apparent distress Respiratory Common normals: normal respiratory effort and no retractions Effort & inspection: symmetric chest movement Cardio Common normals: regular rate, regular rhythm and no murmurs GI Common normals: Normal to inspection, nondistended, normoactive bowel sounds present, soft to palpation and non-tender Extremity Common normals: abnormal to inspection (Dressing in place) DS: Data Data Completed and Pending Labs on day of discharge: Labs from last 24 hours 10/05/24 10/04/24 10/04/24 05:54 14:17 11:59 WBC 19.8 H RBC 4.17 L Hgb 12.8 L Hct 37.6 L MCV 90.2 MCH 30.7 MCHC 34.0 RDW 12.1 Plt Count 464 H MPV 9.7 Neut % (Auto) 85.6 H Lymph % (Auto) 8.1 L [place] % (Auto) 5.3 Eos % (Auto) 0.1 L Baso % (Auto) 0.2 Neut # (Auto) 16.9 H Lymph # (Auto) 1.6 [place] # (Auto) 1.0 H Eos # (Auto) 0.0 Baso # (Auto) 0.0 Abs Immat Gran (auto) 0.13 H Imm/Tot Granulo (auto) 0.7 H Sodium 137 Potassium 4.3 Chloride 102 Carbon Dioxide 28.7 Anion Gap 10.6 BUN 16.0 Creatinine 0.88 Est GFR ( Amer) >60 Est GFR (Non-Af Amer) >60 BUN/Creatinine Ratio 18.2 Glucose 108 H Calcium 9.2 Total Bilirubin 0.3 AST 21 ALT 31 Alkaline Phosphatase 67 C-Reactive Protein 4.36 H Total Protein 6.9 Albumin 2.7 L Globulin 4.2 Albumin/Globulin Ratio 0.6 POC Glucose 111 H 105 Discharge Plan Discharge Disposition: Home, Self-Care Discharge Medications: New cephalexin 500 mg capsule 1,000 mg PO BID Qty: 40 0RF amlodipine 5 mg Tablet 10 mg PO QD Qty: 60 11RF Activity Detail: Non weight bearing to right foot Diet: advance to your usual diet Print Language: Azerbaijani Patient Instructions: Frostbite (ED), Transmetatarsal Amputation (DC) Forms: Portal Instructions Follow Up Appointments: Information given for doctors accepting new patients. Oct. 4 @ 10am at [facility] [address] [place] [address] , [place] [phone] Discharge Date/Time: 10/05/24 12:51
--- NOTE | 2024-10-05 09:38 | CM.NOTE ---
Rounds made with Dr. Khalil, discussed with pt about discharge to home today after Kinjal evaluates pt. PT evaluated pt for discharge. Case Management spoke with pt about discharge planning. Pt states he is going to stay with his ex- until he can get back on his feet. Pt states she is a nurse and will be able to assist him with any needs at home. Discussed with pt about Medicaid, pt has applied in the past but was arrested and the Medicaid process was not completed. SW will take patient another Medicaid application.
--- NOTE | 2024-10-05 09:57 | SWNOTE1 ---
MAHAMED met with pt to discuss dc needs. Pt will be going to live with his ex- who will help care for him during recovery. MAHAMED did provide pt with a Medicaid application and advised him that if he fills it out while he is here SW can send it in. If he does not get it completed, he can bring it back or he can take it to jobs and family services. Pt did ask about knee scooter. MAHAMED advised the [employer] companies in the area do rent them out. SW to call [employer] and get pricing. At this time pt has no further needs. MAHAMED provided pt with Medicaid application and called [employer]. MAHAMED let pt know knee scooter is $50 per month and he has to stop in and fill out paperwork and give height and weight.
[2024-10-05 10:42] VITALS: O2SAT 99
--- NOTE | 2024-10-05 11:50 | SWNOTE1 ---
Pt completed Medicaid regino, SW faxed to [facility] [employer].
--- NOTE | 2024-10-05 13:21 | PM.PN ---
Progress Note: Subjective Subjective Interval history: Patient seen at bedside who is in good spirits and awaiting discharge. He has no complaints Exam Narrative Exam Narrative: Splint is clean dry and intact. No calf pain on squeeze Constitutional Vital Signs, click to edit/add: Last Vital Signs Temp 98.1 F 10/05/24 05:47 Pulse 71 10/05/24 05:47 Resp 18 10/05/24 05:47 BP 162/99 H 10/05/24 05:47 Pulse Ox 99 10/05/24 10:42 O2 Del Method Room Air 10/05/24 10:42 Progress Note: Objective Labs Labs: Short CBC 10/05/24 Range/Units 05:54 WBC 19.8 H (4.0-11.0) 10^3/uL Hgb 12.8 L (14.0-18.0) g/dL Hct 37.6 L (42.0-54.0) % Plt Count 464 H (150-450) 10^3/uL BMP 10/05/24 05:54 Sodium 137 Potassium 4.3 Chloride 102 Carbon Dioxide 28.7 BUN 16.0 Creatinine 0.88 Glucose 108 H Calcium 9.2 Liver Function 10/05/24 Range/Units 05:54 Total Bilirubin 0.3 (0.2-1.0) mg/dL AST 21 (15-37) U/L ALT 31 (16-63) U/L Alkaline Phosphatase 67 (46-116) U/L Albumin 2.7 L (3.4-5.0) g/dL Progress Note: A&P Assessment and Plan (1) Gangrene of toe of right foot: (2) Frostbite with tissue necrosis of foot: Qualifiers: Encounter type: subsequent encounter Laterality: right Qualified Code(s): T34.821D - Frostbite with tissue necrosis of right foot, subsequent encounter (3) HTN (hypertension): Qualifiers: Hypertension type: primary hypertension Qualified Code(s): I10 - Essential (primary) hypertension Plan Patient okay to be discharged Nonweightbearing with crutches/knee scooter Follow-up in wound center next week [place] 5/325 1 by mouth every 8 hours as needed for pain was sent to his pharmacy Keep splint clean dry and intact
--- NOTE | 2024-10-05 16:09 | NUTR.NU ---
Pt was admitted 10/02/24 w/frostbite and tissue necrosis to right foot. Moderate PCM dx d/t pt has been living in his car and not eating regularly. PO intakes of regular diet are consistently good, averaging 90%. 237 mL Ensure High PRO BID ordered 10/04/24 to provide additional nutrients for healing. Sx 10/04/24: transmetatarsal amputation of all five toes of right foot. Encourage regular mealtimes including healthy foods and high-quality PRO at each meal/snack. Will continue to follow PRN.
--- NOTE | 2024-10-06 14:02 | CM.DCFOLLOWU ---
Person spoke with:patient How are you feeling?alright some pain in the evening, poking needle like pain. Advised to call Dr. meng's office if continues and has concerns How is your pain? right now no pain Did you understand your discharge instructions?yes Do you have any questions about your discharge instructions?no Were you given any prescriptions at discharge?yes Were you able to get your prescriptions filled?yes Do you understand how to take your medications as ordered?yes Do you have any questions about your follow up appointment and do you plan to keep your follow up appointment? no questions, follow up reviewed Is there anything else that you would like to discuss?no Questions/Comments/Concerns/Other: none
== END 2024-10-05 12:51 | disposition home or self-care (01) | DRG 908 ==
LOC: ER 11:00 → MS 10-04 09:13
PROVIDERS: Podiatrist Foot & Ankle Surgery; Admitting Provider Internal Medicine; Emergency Provider Emergency Medicine; Visit Provider Family Medicine
PROC: 0Y6M0Z9 Detachment at Right Foot, Partial 1st Ray, Open Approach (ICD-10-PCS; principal; 2024-10-04 10:35)
DX: T34.821A Frostbite with tissue necrosis of right foot, initial encounter (principal); E44.0 Moderate protein-calorie malnutrition; I96 Gangrene, not elsewhere classified; Z59.02 Unsheltered homelessness; Z68.1 Body mass index [BMI] 19.9 or less, adult; L03.115 Cellulitis of right lower limb; X31.XXXA Exposure to excessive natural cold, initial encounter; I10 Essential (primary) hypertension; F17.200 Nicotine dependence, unspecified, uncomplicated; B96.5 Pseudomonas (aeruginosa) (mallei) (pseudomallei) as the cause of diseases classified elsewhere
CPT/HCPCS: 36415; 64445; 64447; 73630; 73700; 80053; 80202; 80307; 82948; 83036; 85025; 85652; 86140; 87070; 87075; 87150; 87186; 88305; 88311; 93005; 94761; 96365; 97161; 99284; 99406; J0131; J1100; J1650; J1885; J2250; J2405; J2543; J2704; J2795; J3010; J3370

== ENCOUNTER 2024-10-12 14:34 | Outpatient (OUT) | payer SELFPAY | END 2024-10-12 14:35 | disposition home or self-care (01) | LOC: WC 14:34 | PROVIDERS: Visit Provider Podiatrist Foot & Ankle Surgery | DX: T81.89XA Other complications of procedures, not elsewhere classified, initial encounter (principal) | CPT/HCPCS: 29445; G0463 ==

== ENCOUNTER 2024-10-19 15:47 | Outpatient (OUT) | payer SELFPAY ==
--- OUTSIDE RECORDS SUMMARY | 2024-10-19 16:10 | XMS_ITS | CCD ---
Author Organization [place] [facility] [facility] Care Team Providers Care Cupola Worker Name Role Phone Jhony Layton DPM Attending Provider Jhony Layton Attending Unavailable Jhony Layton Admitting Unavailable Results Test Name Value Interpretation Reference Range Facil ity Gray 10-04-2024 L ---- Specimen: [id number] Received: 10/05/24 Status: JEANA Coon Num: [id number] Spec Type: Surgical Subm Dr: Jhony Layton DPM, MS Tissues: A DIGIT AMPUTATION (RT TRANSMETATARSAL AMPUTATIO) Procedures: HE/2, Gross/Micro L4, Decalcification Age/ Patient Sex Location Account Attending Physician Humberto Mera 44/M LABELL [id number] Jhony Layton DPM, MS SPEC NUM: [id number] RECD: 10/05/24 STATUS: JEANA COON NUM: [id number] ROBBY: 10/04/24 [facility] DR: Jhony Layton DPM, MS ENTERED: 10/05/24-[address]: Jatin,Lab SPEC TYPE: Surgical DEPT: DIANN TAI ENTERED BY: [id number] RECV BY: [id number] ORDERED: HE/2, Gross/Micro L4, Decalcification ORDERED: HE/2, Gross/Micro L4, Decalcification Pathological Diagnosis Right forefoot transmetatarsal amputation: -Severe necrotizing and infected gangrenous ulceration of the toes, demonstrating apparent purulent exudates extending to the periosteal cortical bony surface of the slightly degenerated fifth toe, and with at least 1 small focus of acute inflammation in the medullary space, consistent with at least minor evolving or imminent acute osteomyelitis -Viable proximal skin margins with only focal mild chronic inflammation in the dermis without acute inflammation Clinical Information Removed necrotic tissue, clear infection Gross Description Part A is received in formalin labeled with the patients name, date of , and right forefoot amputation is a right transmetatarsal resection specimen, 10 x 10 x 3.5 cm en bloc that consists of the 1st through 5th digits. The dorsal distal aspect of the 1st through 4th digits displays sheets of peck-may, keratinized nail, ranging from 0.9 to 1.6 cm in greatest dimension. The fourth and fifth digits are purple-brown and completely indurated. The proximal 3 cm of the specimen is devoid of overlying soft tissue or skin, while the remainder the specimen is covered by peck-black, wrinkled, focally sloughing skin. A longitudinal section of the fifth digit is submitted in cassette A1 after decalcification with tangential cross-sections of the proximal skin margin submitted in A2. (2, ss, BS25 Specimen: [id number] Received: 10/05/24 Status: JEANA Keysdean Num: [id number] Spec Type: Surgical Subm Dr: Jhony Layton,ADELITA, [place] Tissues: A DIGIT AMPUTATION (RT TRANSMETATARSAL AMPUTATIO) Procedures: HE/2, Gross/Micro L4, Decalcification Patient: Humberto Mera [id number] (Continued) Specimen: [id number] Received: 10/05/24 (Continued) Gross Description (Continued) Signed (signature on file) Ean Resendiz MD 10/08/24 1543 Specimen: [id number] Received: 10/05/24 Status: JEANA Coon Num: [id number] Spec Type: Surgical Subm Dr: Jhony Layton,ADELITA, MS Tissues: A DIGIT AMPUTATION (RT TRANSMETATARSAL AMPUTATIO) Procedures: HE/2, Gross/Micro L4, Decalcification Patient: Humberto Mera [id number] (Continued) Specimen: [id number] Received: 10/05/24 (Continued) Gross Description (Continued) A)JASPREET Microscopic Description Microscopic examinations are performed supporting the above interpretation CPT Codes 96233 52040 Specimen: [id number] Received: 10/05/24 Status: JEANA Coon Num: [id number] Spec Type: Surgical Subm Dr: Jhony Layton,ADELITA, MS Tissues: A DIGIT AMPUTATION (RT TRANSMETATARSAL AMPUTATIO) Procedures: HE/2, Gross/Micro L4, Decalcification Patient: Humberto Mera [id number] (Continued) Signed (signature on file) Ean Resendiz MD 10/08/24 1543 Normal [facility] Encounters Encounter Date Encounter Type Care Provider Facility Start: 10-04-2024 End: 10-04-2024 ambulatory Jhony Layton [facility] Work Phone: Start: 10-04-2024 End: 10-04-2024 Departed Referred Jhony Layton DPM Work Phone: [facility] Path Spec [facility] Payers Date Payer Category Payer Self-pay Social History Date Type Detail Facility Tobacco smoking stat [facility] Unknown if ever smoked [facility] Work Phone: Start: 10-06-2024 Sex Male (finding) [facility] Start: 1980 Sex Assigned At Male F [facility] Evaluation note Note Date & Type Note Facility Evaluation note No assessment information availa ble [facility] Work Phone: Summary Purpose Family History No Family History Records Found Advance Directives No Advanced Directives Records Found Additional Source Comments Care Teams (unrecognized sec tion and content) Team Status: Inactive Member Role Status Dates Jhony Layton DPM MS Attending Provider Active Start: October 04, 2024 End: October 04, 2024 Goals (unrecognized section and content) Goals may be documented in a n alternate section (unrecognized sect ion and content) No Status Records Found INFORMATION SOURCE (unrecogn ized section and content) DATE CREATED AUTHOR 10/09/2024 [facility] Group FOR RECORDS PERTAINING TO PATIENTS WHO ARE OR HAVE BEEN ENROLLED IN A CHEMICAL DEPENDENCY/SUBSTANCEABUSE PROGRAM, SOME INFORMATION MAY BE OMITTED. This clinical summary was aggregated from multiple sources. Caution should be exercised in using it in the provision of clinical care. This summary normalizes information from multiple sources, and as a consequence, information in this document may materially change the coding, format and clinical context of patient data. In addition, data may be omitted in some cases. CLINICAL DECISIONS SHOULD BE BASED ON THE PRIMARY CLINICAL RECORDS. [facility]. provides no warranty or guarantee of the accuracy or completeness of information in this document.
== END 2024-10-19 15:48 | disposition home or self-care (01) ==
LOC: WC 15:47
PROVIDERS: Visit Provider Physician Assistant
DX: T81.89XA Other complications of procedures, not elsewhere classified, initial encounter (principal)

== ENCOUNTER 2024-10-26 15:24 | Outpatient (OUT) | payer SELFPAY ==
--- OUTSIDE RECORDS SUMMARY | 2024-10-26 15:46 | XMS_ITS | CCD ---
Author Organization [employer] [facility] [facility] Care Team Providers Care Mechanical Process Engineer Name Role Phone Jhony Layton DPM Attending Provider Jhony Layton Attending Unavailable Jhony Layton Admitting Unavailable Results Test Name Value Interpretation Reference Range Facil ity Gray 10-04-2024 L ---- Specimen: [id number] Received: 10/05/24 Status: JEANA Coon Num: [id number] Spec Type: Surgical Subm Dr: Jhony Layton DPM, MS Tissues: A DIGIT AMPUTATION (RT TRANSMETATARSAL AMPUTATIO) Procedures: HE/2, Gross/Micro L4, Decalcification Age/ Patient Sex Location Account Attending Physician Humberto Mera 44/M LABELL [id number] Jhony Layton DPM, MS SPEC NUM: [id number] RECD: 10/05/24 STATUS: JEANA COON NUM: [id number] ROBBY: 10/04/24 [facility] DR: Jhony Layton DPM, MS ENTERED: 10/05/24-[address]: Jatin,Lab SPEC TYPE: Surgical DEPT: DIANN TAI ENTERED BY: [id number] RECV BY: [id number] ORDERED: HE/2, Gross/Micro L4, Decalcification ORDERED: HE/2, [...] BS25- Received: 10/05/24 Status: JEANA Keysdean Num: [id number] Spec Type: Surgical Subm Dr: Jhony Layton,ADELITA, MS Tissues: A DIGIT AMPUTATION (RT TRANSMETATARSAL AMPUTATIO) Procedures: HE/2, Gross/Micro L4, Decalcification Patient: Humberto Mera [id number] (Continued) Specimen: [id number] Received: 10/05/24 (Continued) Gross Description (Continued) Signed (signature on file) Ean Resendiz MD 10/08/24 1543 Specimen: [id number] Received: 10/05/24 Status: JEANA Coon Num: [id number] Spec Type: Surgical Subm Dr: Jhony Layton,ADELITA, MS Tissues: A DIGIT AMPUTATION (RT TRANSMETATARSAL AMPUTATIO) Procedures: HE/2, Gross/Micro L4, Decalcification Patient: Humberto Mera [id number] (Continued) Specimen: [id number] Received: 10/05/24 (Continued) Gross Description (Continued) A)JASPREET Microscopic Description Microscopic examinations are performed supporting the above interpretation CPT Codes 73702 42470 Specimen: [id number] Received: 10/05/24 Status: JEANA Coon Num: [id number] Spec Type: Surgical Subm Dr: Jhony Layton,ADELITA, MS Tissues: A DIGIT AMPUTATION (RT TRANSMETATARSAL AMPUTATIO) Procedures: HE/2, Gross/Micro L4, Decalcification Patient: Humberto Mera [id number] (Continued) Signed (signature on file) Ean Resendiz MD 10/08/24 1543 Normal [facility] Encounters Encounter Date Encounter Type Care Provider Facility Start: 10-04-2024 End: 10-04-2024 ambulatory Jhony Layton [facility] Work Phone: Start: 10-04-2024 End: 10-04-2024 Departed Referred Jhony Layton DPM Work Phone: [facility] Path Spec [facility] Payers Date Payer Category Payer Self-pay Social History Date Type Detail Facility Tobacco smoking stat [facility] Unknown if ever smoked [facility] Work Phone: Start: 10-06-2024 Sex Male (finding) [facility] Start: 1980 Sex Assigned At Male F [facility] Evaluation note Note Date & Type Note Facility Evaluation note No assessment information availa ble [facility] Work Phone: Summary Purpose Family History [...] and content) DATE CREATED AUTHOR 10/09/2024 [facility] FOR RECORDS PERTAINING TO PATIENTS [...] BE BASED ON THE PRIMARY CLINICAL RECORDS. [facility]. provides no warranty or guarantee of the accuracy or completeness of information in this document.
== END 2024-10-26 15:25 | disposition home or self-care (01) ==
LOC: WC 15:24
PROVIDERS: Visit Provider Physician Assistant
DX: T81.89XA Other complications of procedures, not elsewhere classified, initial encounter (principal)
CPT/HCPCS: G0463

== ENCOUNTER 2024-11-10 10:06 | Outpatient (OUT) | payer SELFPAY ==
--- OUTSIDE RECORDS SUMMARY | 2024-11-10 10:21 | XMS_ITS | CCD ---
Author Organization [place] [employer] [facility] [employer] [facility] Care Team Providers Care Revenue Accountant Name Role Phone Jhony Layton DPM Attending Provider Jhony Layton Attending Unavailable Jhony Layton Admitting Unavailable Results Test Name Value Interpretation Reference Range Facil ity Gray 10-04-2024 L ---- Specimen: [id number] Received: 10/05/24 Status: JEANA Coon Num: [id number] Spec Type: Surgical Subm Dr: Jhony Layton DPM, MS Tissues: A DIGIT AMPUTATION (RT TRANSMETATARSAL AMPUTATIO) Procedures: HE/2, Gross/Micro L4, Decalcification Age/ Patient Sex Location Account Attending Physician Humberto Mera 44/M LABELL [id number] Jhony Layton DPM, MS SPEC NUM: [id number] RECD: 10/05/24 STATUS: JEANA COON NUM: [id number] ROBBY: 10/04/[address] [facility] [address]: Jhony Layton DPM, MS ENTERED: 10/05/24-[address]: Jatin,Lab SPEC TYPE: Surgical DEPT: DIANN TAI ENTERED BY: [id number] RECV BY: [id number] ORDERED: HE/2, Gross/Micro L4, Decalcification ORDERED: HE/2, [...] 1st through 4th digits displays sheets of pcek-may, keratinized nail, ranging from 0.9 to 1.6 [...] BS25- Received: 10/05/24 Status: JEANA Keysdean Num: [id number] Spec Type: Surgical Subm Dr: Jhony Layton,ADELITA, MS Tissues: A DIGIT AMPUTATION (RT TRANSMETATARSAL AMPUTATIO) Procedures: HE/2, Gross/Micro L4, Decalcification Patient: Humberto Mera [id number] (Continued) Specimen: [id number] Received: 10/05/24 (Continued) Gross Description (Continued) Signed (signature on file) Ean Resendiz MD 10/08/24 1543 Specimen: [id number] Received: 10/05/24 Status: JEANA Coon Num: [id number] Spec Type: Surgical Subm Dr: Jhony Layton,ADELITA, MS Tissues: A DIGIT AMPUTATION (RT TRANSMETATARSAL AMPUTATIO) Procedures: HE/2, Gross/Micro L4, Decalcification Patient: Humberto Mera [id number] (Continued) Specimen: [id number] Received: 10/05/24 (Continued) Gross Description (Continued) A)JASPREET Microscopic Description Microscopic examinations are performed supporting the above interpretation CPT Codes 88839 17680 Specimen: [id number] Received: 10/05/24 Status: JEANA Coon Num: [id number] Spec Type: Surgical Subm Dr: Jhony Layton,ADELITA, MS Tissues: A DIGIT AMPUTATION (RT TRANSMETATARSAL AMPUTATIO) Procedures: HE/2, Gross/Micro L4, Decalcification Patient: Humberto Mera [id number] (Continued) Signed (signature on file) Ean Resendiz MD 10/08/24 1543 Normal [facility] Encounters Encounter Date Encounter Type Care Provider Facility Start: 10-04-2024 End: 10-04-2024 ambulatory Jhony Layton [facility] Work Phone: Start: 10-04-2024 End: 10-04-2024 Departed Referred Jhony Layton DPM Work Phone: [facility] Path [facility] Payers Date Payer Category Payer Self-pay Social History Date Type Detail Facility Tobacco smoking stat [facility] Unknown if ever smoked [facility] Work Phone: Start: 10-06-2024 Sex Male (finding) [facility] Start: 1980 Sex Assigned At Male F [facility] Evaluation note Note Date & Type Note Facility Evaluation note No assessment information availa ble [facility] Work Phone: Summary Purpose Family History [...] and content) DATE CREATED AUTHOR 10/09/2024 [facility] y[facility]ician Group FOR RECORDS PERTAINING TO PATIENTS [...] BE BASED ON THE PRIMARY CLINICAL RECORDS. [facility] [employer] [facility]. provides no warranty or guarantee of the accuracy or completeness of information in this document.
== END 2024-11-10 10:07 | disposition home or self-care (01) ==
LOC: WC 10:06
PROVIDERS: Visit Provider Physician Assistant
DX: T81.89XA Other complications of procedures, not elsewhere classified, initial encounter (principal)
CPT/HCPCS: G0463

== ENCOUNTER 2024-11-30 09:31 | Outpatient (OUT) | payer SELFPAY ==
--- OUTSIDE RECORDS SUMMARY | 2024-11-30 09:54 | XMS_ITS | CCD ---
Author Organization [place] [employer] [facility] Care Team Providers Care Cork Compounder Name Role Phone Jhony Layton DPM Attending Provider Jhony Layton Attending Unavailable Jhony Layton Admitting Unavailable Results Test Name Value Interpretation Reference Range Facil ity Gray 10-04-2024 L ---- Specimen: [id number] Received: 10/05/24 Status: JEANA Coon Num: [id number] Spec Type: Surgical Subm Dr: Jhony Layton DPM, MS Tissues: A DIGIT AMPUTATION (RT TRANSMETATARSAL AMPUTATIO) Procedures: HE/2, Gross/Micro L4, Decalcification Age/ Patient Sex Location Account Attending Physician Humberto Mear 44/M LABELL [id number] Jhony Layton DPM, MS SPEC NUM: [id number] RECD: 10/05/24 STATUS: JEANA COON NUM: [id number] ROBBY: 10/04/24 [facility] DR: Jhony Layton DPM, MS ENTERED: 10/05/24-[address]: Jatin,Lab SPEC TYPE: Surgical DEPT: DIANN TAI ENTERED BY: [id number] RECV BY: [id number] ORDERED: HE/2, Gross/Micro L4, Decalcification ORDERED: HE/2, [...] BS25- Received: 10/05/24 Status: JEANA Keysdean Num: [id number] Spec Type: Surgical Subm Dr: Jhony Layton,ADELITA, MS Tissues: A DIGIT AMPUTATION (RT TRANSMETATARSAL AMPUTATIO) Procedures: HE/2, Gross/Micro L4, Decalcification Patient: Humberto Mera [id number] (Continued) Specimen: [id number] Received: 10/05/24 (Continued) Gross Description (Continued) Signed (signature on file) Ean Resendiz MD 10/08/24 1543 Specimen: [id number] Received: 10/05/24 Status: JEANA Coon Num: [id number] Spec Type: Surgical Subm Dr: Jhony Layton,ADELITA, MS Tissues: A DIGIT AMPUTATION (RT TRANSMETATARSAL AMPUTATIO) Procedures: HE/2, Gross/Micro L4, Decalcification Patient: Humberto Mera [id number] (Continued) Specimen: [id number] Received: 10/05/24 (Continued) Gross Description (Continued) A)JASPREET Microscopic Description Microscopic examinations are performed supporting the above interpretation CPT Codes 77708 37307 Specimen: [id number] Received: 10/05/24 Status: JEANA Coon Num: [id number] Spec Type: Surgical Subm Dr: Jhony Layton,ADELITA, MS Tissues: A DIGIT AMPUTATION (RT TRANSMETATARSAL AMPUTATIO) Procedures: HE/2, Gross/Micro L4, Decalcification Patient: Humberto Mera [id number] (Continued) Signed (signature on file) Ean Resendiz MD 10/08/24 1543 Normal [facility] Encounters Encounter Date Encounter Type Care Provider Facility Start: 10-04-2024 End: 10-04-2024 ambulatory Jhony Layton [facility] Work Phone: Start: 10-04-2024 End: 10-04-2024 Departed Referred Jhony Layton DPM Work Phone: [facility] Payers Date Payer Category Payer Self-pay Social History Date Type Detail Facility Tobacco smoking stat [facility] Unknown if ever smoked [facility] Work Phone: Start: 10-06-2024 Sex Male (finding) [facility] Start: 1980 Sex Assigned At Male F [facility] Evaluation note Note Date & Type Note Facility Evaluation note No assessment information availa ble [facility] Work Phone: Summary Purpose Family [...] and content) DATE CREATED AUTHOR 10/09/2024 [facility] ysician Group FOR RECORDS PERTAINING TO [...] BE BASED ON THE PRIMARY CLINICAL RECORDS. [facility] [employer] [facility]. provides no warranty or guarantee of the accuracy or completeness of information in this document.
== END 2024-11-30 09:32 | disposition home or self-care (01) ==
LOC: WC 09:31
PROVIDERS: Visit Provider Physician Assistant
DX: T81.89XA Other complications of procedures, not elsewhere classified, initial encounter (principal)
CPT/HCPCS: G0463